=== PATIENT | female | born 1940 | race Caucasian/White ===

== ENCOUNTER → 2017-09-02 07:47 | Outpatient (CLI) | payer OTHER, SELFPAY ==
--- NOTE | 2017-09-02 | DI.MG.S_ITS ---
BILATERAL DIGITAL SCREENING MAMMOGRAM 3D/2D WITH CAD: 09/02/2017 CLINICAL: Routine screening. Family history of breast cancer. Comparison is made to exams dated: 09/01/2016 mammogram, 08/09/2015 mammogram, and 07/26/2014 mammogram - [facility]. The tissue of both breasts is heterogeneously dense. This may lower the sensitivity of mammography. Current study was also evaluated with a Computer Aided Detection (CAD) system. There is a biopsy clip in the right breast. No significant masses, calcifications, or other findings are seen in either breast. There has been no significant interval change. IMPRESSION: NEGATIVE There is no mammographic evidence of malignancy. A 1 year screening mammogram is recommended. This exam was interpreted at Station ID: [id number]. NOTE: For mammograms, a report in lay terms will be sent to the patient. Approximately 15% of breast malignancies will not be visualized mammographically. In the management of a palpable breast mass, a negative mammogram must not discourage biopsy of a clinically suspicious lesion. Electronically Signed By: Ken chun/buffy:09/02/2017 11:16:47 letter sent: Normal Exam ACR BI-RADS Category 1: Negative 3341F
== END ==
PROVIDERS: Family Provider Internal Medicine Rheumatology; PCP Family Medicine
DX: Z12.31 Encounter for screening mammogram for malignant neoplasm of breast (principal); Z80.3 Family history of malignant neoplasm of breast
CPT/HCPCS: 77063; 77067

== ENCOUNTER → 2018-02-04 15:30 | Outpatient (CLI) | payer OTHER, SELFPAY ==
[2018-02-04 16:38] LABS: Alanine Aminotransferase 17 IU/L (9-52); Albumin 4.3 g/dL (3.5-5.0); Albumin Globulin Ratio 1.3 (1.0-2.8); Alkaline Phosphatase 53 U/L (38-126); Aspartate Aminotransferase 22 IU/L (14-36); Bilirubin Total 1.1 mg/dL (0.2-1.3); Blood Urea Nitrogen 17 mg/dL (7-17); Calcium 9.8 mg/dL (8.4-10.2); Carbon Dioxide 30 mmol/L (22-32); Chloride 101 mmol/L (98-107); Estimated Glomerular Filt Rate 53.9 mL/min (>60); Globulin 3.2 g/dL (1.7-4.1); Glucose 120 mg/dL (80-110); HEMOLYSIS < 15 (0-50); Sodium 143 mmol/L (137-145); Total Protein 7.5 g/dL (6.3-8.2)
== END ==
PROVIDERS: Internal Medicine; Family Provider Internal Medicine Rheumatology; PCP Internal Medicine Rheumatology; Referring Provider Family Medicine
DX: R42 Dizziness and giddiness (principal); H81.11 Benign paroxysmal vertigo, right ear
CPT/HCPCS: 36415; 80053

== ENCOUNTER → 2018-05-03 08:47 | Outpatient (CLI) | payer OTHER, SELFPAY ==
--- NOTE | 2018-05-03 08:49 | DI.RAD.S_ITS ---
PROCEDURE: XR CHEST 2V INDICATIONS: cough TECHNIQUE: 2 views of the chest were acquired. COMPARISON: [facility], , CHEST FOR PICC PLACEMENT, 03/29/2017, 12:50. FINDINGS: Surgical changes and devices: None. Lungs and pleura: Lungs are clear. No pleural effusions or pneumothorax. Mediastinum: Mediastinal contours are normal. Heart size is normal. Bones and chest wall: No suspicious bony abnormalities. Soft tissues appear unremarkable. IMPRESSION: No acute cardiopulmonary pathology. Dictated by: Claudio Diaz M.D. on 05/03/2018 at 9:04 Approved by: Claudio Diaz M.D. on 05/03/2018 at 9:05
== END ==
PROVIDERS: Family Provider Internal Medicine Rheumatology; PCP Family Medicine; Visit Provider Physician Assistant
DX: R05 Cough (principal)
CPT/HCPCS: 71046

== ENCOUNTER 2018-05-19 09:14 | Emergency (ER) | payer OTHER, SELFPAY ==
[2018-05-19 09:25] VITALS: BP 160/61; PULSE 78; RESP 16; TEMP 36.7; O2SAT 100; BMI 25.7
--- NOTE | 2018-05-19 09:30 | ED_ITS ---
HPI - Fall General Chief Complaint: Fall Stated Complaint: fell and hit back of head Time Seen by Provider: 05/19/18 09:18 Source: patient Mode of arrival: ambulatory Limitations: no limitations History of Present Illness HPI Narrative: 77-year-old female not on blood thinners here for evaluation of a mechanical fall. Patient states that she was standing on some stairs when she bent over to kiss her by when she lost balance and fell backwards. States she hit the back of her head on a door. No loss of conscious. No vomiting. No vision changes. Was able to get up and ambulate afterwards. No memory issues. No neck pain. she called the nurse advice line who told her to come into the emergency department for evaluation. Related Data Home Medications Medication Instructions Recorded Confirmed folic acid 2 mg PO QDAY #0 07/22/11 05/03/18 cholecalciferol (vitamin D3) 1 tab PO QDAY #0 02/09/17 05/03/18 [Vitamin D3] aspirin 81 mg PO QDAY #0 03/26/17 05/03/18 multivitamin [Multiple Vitamins] 1 tab PO QDAY #0 05/07/17 05/03/18 etanercept [Enbrel] #0 05/25/17 05/03/18 methotrexate sodium (PF) Unknown #0 05/25/17 05/03/18 Previous Rx's Medication Instructions Recorded estradiol 0.5 mg PO QDAY #90 mg 01/22/17 famciclovir 500 mg tablet 500 mg PO BID #60 tab 08/13/17 atenolol 25 mg tablet 25 mg PO DAILY #30 tab 01/15/18 azithromycin 250 mg tablet See Rx Instructions PO .COMPLEX #6 05/03/18 tab benzonatate 100 mg capsule 100 mg PO BEDTIME #20 cap 05/03/18 Allergies Allergy/AdvReac Type Severity Reaction Status Date / Time No Known Allergies Allergy Uncoded 05/03/18 08:12 Review of Systems Constitutional Denies fever(s), Denies headache(s) and Denies weakness Eyes Denies blurry vision and Denies diplopia ENT Ears, Nose, Mouth, and Throat: Denies vertigo, Denies dizziness, Denies headache(s), Denies neck pain, Denies disequilibrium and Denies sore throat Cardiovascular Denies chest pain and Denies dyspnea Respiratory Denies dyspnea Gastrointestinal Gastrointestinal: Denies nausea and Denies vomiting Musculoskeletal Denies myalgias, Denies arthralgias and Denies neck pain Integumentary/Breasts Denies rash Neurologic Denies vertigo, Denies dizziness, Denies headache(s), Denies memory loss, Denies disequilibrium and Denies weakness Psychiatric Denies memory loss Hematologic/Lymphatic Denies easy bleeding and Denies easy bruising Exam Initial Vital Signs Initial Vital Signs: Vital Signs Temperature 98.0 F 05/19/18 09:25 Pulse Rate 78 05/19/18 09:25 Respiratory Rate 16 05/19/18 09:25 Blood Pressure 160/61 H 05/19/18 09:25 Pulse Oximetry 100 05/19/18 09:25 Const General: cooperative, well developed, well groomed and No acute distress Orientation: alert, awake and oriented x3 HENMT Head: normal to inspection and normocephalic Ears: TM's normal bilaterally Nose: external nose normal Face and sinus: normal facial exam Resp Effort & Inspection: normal respiratory effort Cardio Rate: regular rate Back/Spine/Pelvis Cervical Spine: No cervical spasm and No cervical spinal tenderness Skin Lesions: no lesions Rashes: no rashes Neuro General: alert, awake and oriented x3 Cognition: normal cognition Speech: speech normal Gait: normal gait Sensory Exam: no sensory deficits noted Extrem General: normal to inspection and capillary refill normal Psych Appearance: grossly normal and well kempt [facility] Medical History Essential hypertension (Chronic) Actinic keratosis (Resolved 1994) Rheumatoid arthritis (Chronic ~1995) Tinnitus of both ears (Chronic ~1999) Vertigo (Chronic ~1999) Herpes (Chronic 1984) Skin cancer (Resolved 1997) Diverticulitis large intestine (Acute) Diverticular disease (Chronic 2013) Osteopenia (Chronic 2017) Chickenpox (Resolved ~194) Surgical History (Updated 09/04/17 @ 11:37 by Ale Manzo LPN) Status post cholecystectomy (Resolved 1997) Status post hysterectomy (Resolved 1984) Status post vaginal hysterectomy (Chronic) Status post laparoscopic cholecystectomy (Chronic) Family History Brother Age: 80 Thyroid cancer Grandmother Cancer Grandfather Hypertension Grandmother Cancer Grandfather No problems noted. Father Heart disease Mother No problems noted. Social History marital status: household members: spouse Smoking Status: Never smoker alcohol intake: never substance use type: does not use Social History marital status: household members: spouse Smoking Status: Never smoker alcohol intake: never substance use type: does not use Course Vital Signs - 8 hr 05/19/18 09:25 Temperature 98.0 F Pulse Rate 78 Respiratory Rate 16 Blood Pressure 160/61 H Pulse Oximetry 100 MDM - Fall MDM Narrative Medical decision making narrative: No depressed skull fracture, alert and oriented x3. GCS 15. Patient's age is the only risk factor according to the [place] CT head rule. Given the lack of other findings will hold on head CT for now. I discussed this with the patient. We discussed return precautions and follow-up instructions. We did discuss closed head injuries and concussions. She will follow up with her primary doctor and return for worsening symptoms. She expressed understanding and agreement with plan. Discharge Plan Departure Patient Disposition: Home Clinical Impression: Closed head injury Qualifiers: Encounter type: initial encounter Qualified Code(s): S09.90XA - Unspecified injury of head, initial encounter Instructions: Closed Head Injury Activity Restrictions/Additional Instructions: Recommend that you avoid activities that make any of her symptoms worsen. Contact your primary care doctor for a follow-up. Return to the emergency department for any new symptoms, worsening headaches, vision changes, balance issues, multiple episodes of vomiting, or any other concerning symptoms. Prescriptions: No Action azithromycin 250 mg tablet See Rx Instructions PO .COMPLEX Qty: 6 RF: 0 benzonatate 100 mg capsule 100 mg PO BEDTIME Qty: 20 RF: 0 folic acid 1 MG tablet 2 mg PO QDAY Qty: 0 RF: 0 estradiol 0.5 MG tablet 0.5 mg PO QDAY Qty: 90 RF: 3 cholecalciferol (vitamin D3) [Vitamin D3] 2,000 UNIT tablet 1 tab PO QDAY Qty: 0 RF: 0 aspirin 81 MG tablet,delayed release (DR/EC) 81 mg PO QDAY Qty: 0 RF: 0 multivitamin [Multiple Vitamins] 1 EACH tablet 1 tab PO QDAY Qty: 0 RF: 0 etanercept [Enbrel] 25 MG recon soln Qty: 0 RF: 0 methotrexate sodium (PF) 25 MG/1 ML solution Unknown Qty: 0 RF: 0 famciclovir 500 mg tablet 500 mg PO BID Qty: 60 RF: 1 atenolol 25 mg tablet 25 mg PO DAILY Qty: 30 RF: 0 Referrals: Marcello Pineda MD [Primary Care Provider] -
[2018-05-19 10:01] VITALS: BP 141/69
== END 2018-05-19 10:01 | disposition home or self-care (01) ==
PROVIDERS: Emergency Provider Emergency Medicine; Family Provider Internal Medicine Rheumatology; PCP Family Medicine
DX: S09.90XA Unspecified injury of head, initial encounter (principal); W19.XXXA Unspecified fall, initial encounter
CPT/HCPCS: 99282

== ENCOUNTER → 2018-09-06 11:39 | Outpatient (CLI) | payer OTHER, SELFPAY ==
--- NOTE | 2018-09-06 | DI.MG.S_ITS ---
BILATERAL DIGITAL SCREENING MAMMOGRAM 3D/2D WITH CAD: 09/06/2018 CLINICAL: Routine screening. Comparison is made to exams dated: 08/25/2016 mammogram, 07/26/2014 mammogram, 09/02/2017 mammogram - [facility], 10/03/2016 stereotactic biopsy - [facility], 08/09/2015 mammogram, and 07/14/2013 mammogram - [facility]. The tissue of both breasts is heterogeneously dense. This may lower the sensitivity of mammography. Current study was also evaluated with a Computer Aided Detection (CAD) system. There is a benign biopsy clip in the right breast. There is a mole marker on the left breast. No significant masses, calcifications, or other findings are seen in either breast. There has been no significant interval change. IMPRESSION: NEGATIVE There is no mammographic evidence of malignancy. A 1 year screening mammogram is recommended. This exam was interpreted at Station ID: [id number]. NOTE: For mammograms, a report in lay terms will be sent to the patient. Approximately 15% of breast malignancies will not be visualized mammographically. In the management of a palpable breast mass, a negative mammogram must not discourage biopsy of a clinically suspicious lesion. Electronically Signed By: Abisai lainez/buffy:09/06/2018 18:24:16 letter sent: Normal Exam ACR BI-RADS Category 1: Negative 3341F
== END ==
PROVIDERS: Family Provider Internal Medicine Rheumatology; PCP Family Medicine
DX: Z12.31 Encounter for screening mammogram for malignant neoplasm of breast (principal)
CPT/HCPCS: 77063; 77067

== ENCOUNTER → 2018-09-27 12:58 | Outpatient (CLI) | payer OTHER, SELFPAY | PROVIDERS: Family Provider Internal Medicine Rheumatology; PCP Family Medicine | DX: Z13.820 Encounter for screening for osteoporosis (principal); M85.851 Other specified disorders of bone density and structure, right thigh; M85.852 Other specified disorders of bone density and structure, left thigh; Z78.0 Asymptomatic menopausal state; M06.9 Rheumatoid arthritis, unspecified | CPT/HCPCS: 77080 ==

== ENCOUNTER → 2019-01-11 10:27 | Outpatient (CLI) | payer OTHER, SELFPAY ==
--- NOTE | 2019-01-11 | DI.US.S_ITS ---
PROCEDURE: US PELVIC COMPLETE INDICATIONS: Other ovarian cyst, unspecified side TECHNIQUE: Real-time scanning was performed of the pelvic organs, with image documentation. Additional endovaginal scanning was necessary due to incomplete visualization of the adnexal and endometrial structures by transabdominal scanning. COMPARISON: [facility], US, US PELVIC COMPLETE, 06/26/2017, 11:01. FINDINGS: Transabdominal scanning: Limited scanning through the kidneys shows no hydronephrosis. No pathologic free abdominal or pelvic fluid. Endovaginal scanning: Uterus: Uterus is surgically absent. Ovaries: Right ovary measures 3.0 x 1.7 x 2.1 cm. There is a simple 1.8 cm right ovarian cyst. The left ovary measures 1.5 x 0.6 x 0.9 cm. IMPRESSION: Status post hysterectomy. No acute sonographic abnormalities identified in the pelvis. A stable 1.8 cm simple right ovarian cyst is noted. Recommend routine followup pelvic ultrasound in one year to document continued stability. Dictated by: Shine Shelby M.D. on 01/11/2019 at 13:30 Approved by: Shine Shelby M.D. on 01/11/2019 at 13:35
== END ==
PROVIDERS: PCP Family Medicine; Visit Provider Family Medicine
DX: N83.291 Other ovarian cyst, right side (principal); Z90.710 Acquired absence of both cervix and uterus
CPT/HCPCS: 76830; 76856

== ENCOUNTER → 2019-03-09 13:40 | Outpatient (CLI) | payer OTHER, SELFPAY ==
[2019-03-09 15:28] LABS: Cholesterol 164 mg/dL (140-199); HDL Cholesterol 54 mg/dL (40-60); LDL Cholesterol Calculated 89 mg/dL (<100); Triglycerides 107 mg/dL (35-150)
== END ==
PROVIDERS: PCP Family Medicine; Visit Provider Family Medicine
DX: Z79.899 Other long term (current) drug therapy (principal)
CPT/HCPCS: 36415; 80061

== ENCOUNTER → 2019-11-08 11:05 | Outpatient (CLI) | payer OTHER, SELFPAY ==
--- NOTE | 2019-11-08 | DI.MG.S_ITS ---
BILATERAL DIGITAL SCREENING MAMMOGRAM 3D/2D WITH CAD: 11/08/2019 CLINICAL: Routine screening. Family history of breast cancer. Comparison is made to exams dated: 09/06/2018 mammogram, 09/02/2017 mammogram, 08/25/2016 mammogram, and 08/09/2015 mammogram - [facility]. The tissue of both breasts is heterogeneously dense. This may lower the sensitivity of mammography. Current study was also evaluated with a Computer Aided Detection (CAD) system. There is a biopsy clip in the right breast. No significant masses, calcifications, or other findings are seen in either breast. There has been no significant interval change. IMPRESSION: NEGATIVE There is no mammographic evidence of malignancy. A 1 year screening mammogram is recommended. This exam was interpreted at Station ID: [id number]. NOTE: For mammograms, a report in lay terms will be sent to the patient. Approximately 15% of breast malignancies will not be visualized mammographically. In the management of a palpable breast mass, a negative mammogram must not discourage biopsy of a clinically suspicious lesion. Electronically Signed By: Bill carroll/buffy:11/08/2019 11:53:52 letter sent: Normal Exam ACR BI-RADS Category 1: Negative 3341F
== END ==
PROVIDERS: PCP Family Medicine; Referring Provider Family Medicine
DX: Z12.31 Encounter for screening mammogram for malignant neoplasm of breast (principal); Z80.3 Family history of malignant neoplasm of breast
CPT/HCPCS: 77063; 77067